=== PATIENT | male | born 1970 | race Caucasian/White ===

== ENCOUNTER 2019-10-31 17:29 | Emergency (ER) | payer MEDICAID ==
[~2019-10-31] VITALS: Ht 165.1 cm; Wt 77.3 kg
[~2019-10-31 17:29] MED LIST: ANUSHCS PR; FERR-89 PO; OMEP20 PO
[2019-10-31] MEDS ORDERED: LIDOCAINE 5% TRANSDERMAL PATCH TD ONE (18:30)
[2019-10-31 19:40] LABS: BASOPHILS % (AUTO) 0.9 % (0.0-2.0); HEMATOCRIT 40.7 % (41-53); HEMOGLOBIN 13.7 g/dL (13.5-17.5); LYMPHOCYTES # (AUTO) 1.4 K/uL (1.0-4.8); LYMPHOCYTES % (AUTO) 17.1 % (22.0-44.0); MEAN CORPUSCULAR HEMOGLOBIN 28.9 pg (26.0-34.0); MEAN CORPUSCULAR HGB CONC 33.8 G/dL (31.0-37.0); MEAN CORPUSCULAR VOLUME 86 fL (80-100); MONOCYTES # (AUTO) 0.7 K/uL (0.1-1.0); MONOCYTES % (AUTO) 8.8 % (2.0-9.0); NEUTROPHILS # (AUTO) 5.5 K/uL (1.8-7.7); NEUTROPHILS % (AUTO) 69.2 % (40.0-70.0); PLATELET COUNT (AUTO) 477 K/uL (150-450); RED BLOOD CELL COUNT(AUTO) 4.75 MIL/uL (4.50-5.90); RED CELL DISTRIBUTION WIDTH 18.2 % (11.5-14.5)
[2019-10-31 19:54] LABS: ANION GAP 8 mmol/L (8-16); CALCIUM, TOTAL 9.4 mg/dL (8.8-10.5); CARBON DIOXIDE 27 mmol/L (22-29); CHLORIDE 104 mmol/L (98-107); CREATININE 1.07 mg/dL (0.60-1.30); GLOMERULAR FILTR. RATE CALC > 60 mL/min (>60); GLUCOSE,RANDOM 101 mg/dL (70-110); POTASSIUM 4.1 mmol/L (3.5-5.1); SODIUM SERUM 139 mmol/L (136-145); UREA NITROGEN, BLOOD 9 mg/dL (7-18)
[2019-10-31 20:16] LABS: CREATINE KINASE, TOTAL ONLY 94 U/L (39-308)
[2019-10-31 20:18] LABS: INFLUENZA TYPE A NEGATIVE FOR TYPE A (NEGATIVE); INFLUENZA TYPE B NEGATIVE FOR TYPE B (NEGATIVE)
[2019-10-31] MEDS ORDERED: DOXYCYCLINE HYCLATE 100 MG CAPSULE PO ONE (20:45)
[2019-10-31 21:00] VITALS: BP 124/87
== END 2019-10-31 21:21 | disposition home or self-care (01) ==
LOC: EMS 17:30
DX: J18.9 Pneumonia, unspecified organism (principal)
CPT/HCPCS: 71101; 83735; 87804; 93005

== ENCOUNTER 2019-11-21 20:49 | Emergency (ER) | payer SELFPAY ==
[~2019-11-21] VITALS: Ht 165.1 cm; Wt 77.3 kg
[2019-11-22 00:01] VITALS: BP 155/91
== END 2019-11-22 01:26 | disposition left against medical advice (07) ==
LOC: EMS 20:52
DX: R05 Cough (principal); Z53.21 Procedure and treatment not carried out due to patient leaving prior to being seen by health care provider

== ENCOUNTER 2019-11-22 18:30 | Emergency (ER) | payer SELFPAY ==
[~2019-11-22] VITALS: Ht 165.1 cm; Wt 77.3 kg
[2019-11-22] MEDS ORDERED: ALBUTEROL SULFATE HFA 90 MCG/PUFF 8 GM INHALER IH ONE (22:30)
[2019-11-22 22:45] VITALS: BP 129/79
== END 2019-11-22 23:14 | disposition home or self-care (01) ==
LOC: EMS 18:32
DX: J32.9 Chronic sinusitis, unspecified (principal); R09.82 Postnasal drip
CPT/HCPCS: 94640; J3535